=== PATIENT | male | born 1950 | race African-American/Black ===

== ENCOUNTER 2017-11-25 18:58 | Emergency (ER) | payer OTHER, MEDICAID ==
[~2017-11-25] VITALS: Ht 185.4 cm; Wt 109.8 kg
[~2017-11-25 18:58] MED LIST: AMLO5TAB2 PO; DICL50TA2 PO; HYDR25TA4 PO
[2017-11-25] MEDS ORDERED: ACETAMINOPHEN 325 MG TAB PO ONE (19:00)
[2017-11-25] MEDS ORDERED: HYDROcodone-ACET 5/325MG TAB PO ONE (20:00)
[2017-11-25 20:12] LABS: Basophils # (auto) 0 uL; Basophils % (auto) 0.2 % (0.0-2.0); Eosinophils # (auto) 0 uL; Eosinophils % (auto) 0.2 % (0.0-7.0); Hematocrit 45.3 % (41.0-53.0); Hemoglobin 14.8 g/dL (13.5-17.5); Lymphocytes # (auto) 1.4 uL; Lymphocytes % (auto) 11.8 % (10.0-50.0); Mean Corpuscular Hemoglobin 28.2 pg (28.0-32.0); Mean Corpuscular Hgb Conc. 32.6 g/dL (32.0-36.0); Mean Corpuscular Volume 86.5 fL (80.0-100.0); Monocytes # (auto) 0.7 uL; Monocytes % (auto) 6.2 % (0.0-12.0); Neutrophils # (auto) 9.7 uL; Neutrophils % (auto) 81.6 % (37.0-80.0); Platelet Count (auto) 162 10^3/uL (140-450); Red Blood Cells 5.24 10^6/uL (4.5-5.90); Red Cell Distribution Width 15.3 % (11.8-14.3); White Blood Cell 11.9 10^3/uL (4.4-10.8)
[2017-11-25 20:26] LABS: Alanine Aminotransferase 22 U/L (16-61); Albumin 3.5 g/dL (3.4-5.0); Alkaline Phosphatase 64 U/L (45-117); Anion Gap 9 (5-15); Aspartate Aminotransferase 17 U/L (15-37); BUN/Creatinine Ratio 12.5; Bilirubin, Total 0.5 mg/dL (0.2-1.0); Blood Urea Nitrogen 11 mg/dL (7-18); Calcium 8.6 mg/dL (8.5-10.1); Carbon Dioxide 24 mmol/L (21-32); Chloride 103 mmol/L (98-107); GFR African American 111 mL/min; GFR Non-African American 92 mL/min; Glucose 100 mg/dL (74-106); INR 1.03 (0.9-1.15); Magnesium 1.9 mg/dL (1.6-2.6); Partial Thromboplastin Time 31.3 sec (22.64-33.71); Potassium 3.3 mmol/L (3.5-5.1); Prothrombin Time 11.2 sec (9.37-12.3); Sodium 136 mmol/L (136-145); Total Protein 7.8 g/dL (6.4-8.2)
[2017-11-25 20:44] VITALS: BP 124/71
== END 2017-11-25 21:03 | disposition home or self-care (01) ==
LOC: ER 18:58 → EDBD 18:58 → ER 21:03
DX: G43.909 Migraine, unspecified, not intractable, without status migrainosus (principal); H70.92 Unspecified mastoiditis, left ear; I10 Essential (primary) hypertension; F17.210 Nicotine dependence, cigarettes, uncomplicated
CPT/HCPCS: 36415; 70450; 80053; 83605; 83735; 84484; 85025; 85610; 85730; 87040; 93005

== ENCOUNTER 2018-01-09 03:30 | Emergency (ER) | payer MEDICAID, OTHER ==
[~2018-01-09] VITALS: Ht 185.4 cm; Wt 95.3 kg
[2018-01-09 04:07] VITALS: BP 149/74
[2018-01-09] MEDS ORDERED: diphenhdrAMINE HCL 25 MG CAP PO ONE (04:15)
[2018-01-09] MEDS ORDERED: methylPREDNISolone SOD SUCC 125 MG/2 ML VL IM ONE (04:15)
== END 2018-01-09 04:54 | disposition home or self-care (01) ==
LOC: ER 03:32
DX: S69.81XA Other specified injuries of right wrist, hand and finger(s), initial encounter (principal); R60.9 Edema, unspecified; I10 Essential (primary) hypertension; F17.210 Nicotine dependence, cigarettes, uncomplicated; Z87.11 Personal history of peptic ulcer disease; W19.XXXA Unspecified fall, initial encounter; Y93.89 Activity, other specified; Y92.89 Other specified places as the place of occurrence of the external cause; Y99.8 Other external cause status
CPT/HCPCS: 73130; 96372; 99284; J2930